=== PATIENT | female | born 1990 | race Asian ===

== ENCOUNTER 2016-12-16 16:57 | Inpatient (IN) | payer OTHER ==
[~2016-12-16] VITALS: Ht 167.6 cm; Wt 77.1 kg
[2016-12-16] MEDS: NACL 0.9% 1,000 ML IV SCH (01:00)
--- NOTE | 2016-12-16 16:57 | NUR ---
Patient was BIBA at this time.
[2016-12-16 17:05] VITALS: BP 119/73
--- NOTE | 2016-12-16 17:05 | NUR ---
Patient taken to bed 08 via gurney per EMS.
--- NOTE | 2016-12-16 17:15 | NUR ---
PATIENT BIB EMS TO ED PER PATIENT,MINIMAL CHEST DISCOMFORT PRIOR TO SYNCOPAL EPISODE/FALL. PATIENT COMPLAINED OF NECK AND BACK PAIN AFTER THE FALL.DENIES HX: AND MEDS.BS 136 FIELD DENIES N/V/D; SKIN IS PINK/WARM/DRY; AAOX4 WITH EVEN AND STEADY GAIT; LUNGS CLEAR BL; HR EVEN AND REGULAR; PT DENIES ANY FEVER, CP, SOB, OR COUGH AT THIS TIME; PATIENT STATES PAIN OF 9/10 AT THIS TIME; VSS; PATIENT POSITIONED FOR COMFORT; HOB ELEVATED; BEDRAILS UP X2; BED DOWN. ER MD MADE AWARE OF PT STATUS.
--- NOTE | 2016-12-16 17:40 | NUR ---
XRAY at bedside.
--- NOTE | 2016-12-16 17:45 | NUR ---
Dr. Sandhu evaluating patient at bedside.
[2016-12-16] MEDS ORDERED: MORPHINE SULFATE 4 MG/ML SYR IVP ONE ×3 (17:50→21:35)
[2016-12-16] MEDS ORDERED: NACL 0.9% 1,000 ML IV ONE ×2 (17:50→19:10)
[2016-12-16 18:04] LABS: BASOPHILS # (AUTO) 0.1 K/uL (0.00-0.22); BASOPHILS % (AUTO) 0.5 % (0.0-2.0); EOSINOPHILS # (AUTO) 0.2 K/uL (0-0.4); HEMATOCRIT 32.9 % (36-48); HEMOGLOBIN 10.7 g/dL (12.0-16.0); LYMPHOCYTES # (AUTO) 0.9 K/uL (2.5-16.5); LYMPHOCYTES % (AUTO) 5.1 % (20.5-51.1); MEAN CORPUSCULAR HEMOGLOBIN 28 pg (27-31); MEAN CORPUSCULAR HGB CONC 33 g/dL (33-37); MEAN CORPUSCULAR VOLUME 86 fL (80-94); MONOCYTES # (AUTO) 0.3 K/uL (0.8-1.0); MONOCYTES % (AUTO) 1.6 % (1.7-9.3); NEUTROPHILS # (AUTO) 15.6 K/uL (1.8-7.7); NEUTROPHILS % (AUTO) 91.8 % (42.2-75.2); PLATELET COUNT (AUTO) 275 K/uL (140-450); RED BLOOD CELL COUNT(AUTO) 3.82 MIL/uL (4.20-5.40); RED CELL DISTRIBUTION WIDTH 12.5 % (11.6-13.7); WHITE BLOOD COUNT (AUTO) 17.1 K/uL (4.8-10.8)
[2016-12-16] MEDS ORDERED: LORazepam 2 MG/ML VIAL IVP ONE (18:35)
[2016-12-16 18:36] LABS: ANION GAP 13.8 (8-16); CARBON DIOXIDE 21.6 mmol/L (21-32); CREATININE 0.9 mg/dL (0.6-1.3); POTASSIUM 4.4 mmol/L (3.5-5.1); TOTAL BILIRUBIN 0.3 mg/dL (0.0-1.0)
[2016-12-16 20:27] LABS: APPEARANCE,URINE SL CLOUDY (CLEAR); BILIRUBIN,URINE NEGATIVE (NEGATIVE); BLOOD, URINE 3+ (NEGATIVE); COLOR,URINE YELLOW (YELLOW); LEUKOCYTE ESTERASE ,URINE NEGATIVE (NEGATIVE); NITRITE, URINE NEGATIVE (NEGATIVE); UGLUCOSE NEGATIVE (NEGATIVE)
[2016-12-16 20:40] LABS: CALCIUM OXALATE CRYSTALS,UR 0-10 /HPF (None Seen); RBC,URINE 11-20 (MOD) /HPF (0-5); WBC,URINE 0-5 (RARE) /HPF (0-5)
[2016-12-16] MEDS ORDERED: cefTRIAXone 1,000 MG VIAL ONE (20:55)
--- NOTE | 2016-12-16 20:59 | NUR ---
PT LEFT TO CT VIA WC ACCOMPANIED BY SOFTWARE SUPPORT TECHNICIAN
[2016-12-16] MEDS ORDERED: ONDANSETRON 4 MG/2 ML VIAL IVP PRN (22:45)
[2016-12-16] MEDS ORDERED: LORazepam 2 MG/ML VIAL IVP PRN (22:45)
[2016-12-16] MEDS ORDERED: ACETAMINOPHEN 325 MG TAB PO PRN (22:45)
[2016-12-16] MEDS ORDERED: HYDROcodone/APAP 5/325 MG 1 TAB TAB PO PRN (22:45)
--- NOTE | 2016-12-16 23:58 | NUR ---
Patient will be admitted to care of DR CARDENAS. Admited to MS . Will go to room MS 104B. Belongings list completed. Report to DINO HOWARD .
[2016-12-17 00:25] VITALS: BP 97/64
--- NOTE | 2016-12-17 00:25 | NUR ---
PATIENT ADMITTED TO THE UNIT FROM ER. PATIENT ALERT, AWAKE, AND ORIENTED. NO SIGNS AND SYMPTOMS OF DISTRESS NOTED. IV SITE NOTED ON LEFT AC AND RIGHT HAND. ERYTHEMA NOTED ON RIGHT KNEE. BED IN LOWEST POSITION. SIDE RAILS UP AND CALL LIGHT WITHIN REACH.
[2016-12-17] MEDS: MORPHINE SULFATE 2 MG/ML SYR IVP PRN ×4 (03:06→21:35)
[2016-12-17] MEDS ORDERED: PIPERACILLIN/TAZOBACTAM 3.375 GM VIAL IV ONE (04:12)
[2016-12-17] MEDS ORDERED: PIPERACILLIN/TAZOBACTAM 3.375 GM in DEXTROSE 5% 50 ML IV SCH (05:00)
[2016-12-17 06:44] LABS: BASOPHILS # (AUTO) 0.1 K/uL (0.00-0.22); BASOPHILS % (AUTO) 0.5 % (0.0-2.0); EOSINOPHILS # (AUTO) 0.1 K/uL (0-0.4); EOSINOPHILS % (AUTO) 0.4 % (0.0-4.0); HEMATOCRIT 25.9 % (36-48); HEMOGLOBIN 8.6 g/dL (12.0-16.0); LYMPHOCYTES % (AUTO) 13.4 % (20.5-51.1); MEAN CORPUSCULAR HEMOGLOBIN 29 pg (27-31); MEAN CORPUSCULAR HGB CONC 33 g/dL (33-37); MEAN CORPUSCULAR VOLUME 87 fL (80-94); MONOCYTES # (AUTO) 0.9 K/uL (0.8-1.0); MONOCYTES % (AUTO) 6.2 % (1.7-9.3); NEUTROPHILS # (AUTO) 12.1 K/uL (1.8-7.7); NEUTROPHILS % (AUTO) 79.5 % (42.2-75.2); PLATELET COUNT (AUTO) 186 K/uL (140-450); RED BLOOD CELL COUNT(AUTO) 2.98 MIL/uL (4.20-5.40); RED CELL DISTRIBUTION WIDTH 12.8 % (11.6-13.7); WHITE BLOOD COUNT (AUTO) 15.2 K/uL (4.8-10.8)
--- NOTE | 2016-12-17 07:10 | NUR ---
RECEIVED REPORT FROM NIGHT NURSE, PT IS AAOX4, ON ROOM AIR, IV TO RIGHT HAND 20G INFUSING WELL, RIGHT AC 20G SALIME LOCK PATENT AND INTACT, RIGHT KNEE SCRAPE, INITIAL ASSESSMENT COMPLETED, REVIEWED PLAN OF CARE WIT PT, PT VERBALIZED UNDERSTANDING, ALL SAFETY PRECAUTIONS MET. CALL LIGHT WITHIN REACH, WILL CONTINUE TO MONITOR.
--- NOTE | 2016-12-17 07:21 | NUR ---
PATIENT REPORT GIVEN TO MORNING NURSE. PATIENT IS IN STABLE CONDITION
[2016-12-17 07:46] LABS: ANION GAP 10.9 (8-16); CARBON DIOXIDE 22.8 mmol/L (21-32); CREATININE 0.6 mg/dL (0.6-1.3); POTASSIUM 3.7 mmol/L (3.5-5.1)
[2016-12-17 08:00] VITALS: BP 123/78
--- NOTE | 2016-12-17 09:21 | NUR ---
PT C/O ABD PAIN 10/30, MEDICATED PER MD ORDERS. WILL CONTINUE TO MONITOR.
[2016-12-17 09:51] LABS: PROTHROMBIN TIME 9.9 secs (10.8-13.4)
--- NOTE | 2016-12-17 09:55 | NUR ---
FAXED INITIAL REVIEW TO [facility] [phone] [place] [phone]
[2016-12-17 09:59] LABS: HEMATOCRIT 26.6 % (36-48); HEMOGLOBIN 8.8 g/dL (12.0-16.0); MEAN CORPUSCULAR HEMOGLOBIN 29 pg (27-31); MEAN CORPUSCULAR HGB CONC 33 g/dL (33-37); MEAN CORPUSCULAR VOLUME 87 fL (80-94); PLATELET COUNT (AUTO) 191 K/uL (140-450); RED BLOOD CELL COUNT(AUTO) 3.06 MIL/uL (4.20-5.40); RED CELL DISTRIBUTION WIDTH 13.1 % (11.6-13.7); WHITE BLOOD COUNT (AUTO) 14.8 K/uL (4.8-10.8)
--- NOTE | 2016-12-17 10:00 | NUR ---
PATIENT HAS BEEN SCREENED AND CATEGORIZED MODERATE NUTRITION RISK. PATIENT WILL BE SEEN WITHIN 3-5 DAYS OF ADMISSION. 12/19/16-12/21/[address]
[2016-12-17 10:19] LABS: ALBUMIN 2.7 g/dL (3.4-5.0); ANION GAP 10.8 (8-16); CARBON DIOXIDE 22.8 mmol/L (21-32); CREATININE 0.6 mg/dL (0.6-1.3); POTASSIUM 3.6 mmol/L (3.5-5.1); TOTAL BILIRUBIN 0.1 mg/dL (0.0-1.0)
[2016-12-17] MEDS: NACL 0.9% 1,000 ML IV SCH ×3 (10:25→23:45)
[2016-12-17 10:57] LABS: LYMPHOCYTES % (MANUAL) 17 % (20-46); MONOCYTES % (MANUAL) 6 % (5-12)
--- NOTE | 2016-12-17 12:15 | NUR ---
PRE BLOOD TRANSFUSION VS: 98.7 TEMP, BP 122/77, HR 86, PULSE OX 98%
[2016-12-17 12:18] LABS: HEMATOCRIT 26.1 % (36-48); HEMOGLOBIN 8.6 g/dL (12.0-16.0)
--- NOTE | 2016-12-17 12:20 | NUR ---
FIRST UNIT OF BLOOD STARTED, NO S/S OF REACTION NOTED. WILL CONTINUE TO MONITOR.
--- NOTE | 2016-12-17 14:18 | NUR ---
PT CURRENTLY ON LAPTOP, NO S/S OF DISTRESS NOTED, PRBC CURRENTLY INFUSING, NO S/S REACTION NOTED, FAMILY MEMBER AT BEDSIDE, ALL NEEDS MET. WILL CONTINUE TO MONITOR.
--- NOTE | 2016-12-17 15:43 | NUR ---
FIRST UNIT OF BLOOD COMPLETED, VS:TEMP 98.3, HE 84, BP 101/64, MD NOTIFIED OF BLOOD PRESSURE. WILL CONTINUE TO MONITOR.
[2016-12-17] MEDS: PIPER/TAZO 3.375GM/D5W PREMIX 50 ML IV SCH ×2 (15:56→21:29)
[2016-12-17 16:00] VITALS: BP 111/71
--- NOTE | 2016-12-17 17:46 | NUR ---
PT C/O ABD 10/30, MEDICATED PER MD ORDERS BP 128/75/ HR 108, PULSE OX 97%. WILL CONTINUE TO MONITOR.
--- NOTE | 2016-12-17 18:30 | NUR ---
SECOND UNIT OF PRBC STARTED, NO S/S OF REACTION NOTED. WILL CONTINUE TO MONITOR.
--- NOTE | 2016-12-17 19:25 | NUR ---
ENDORSED PLAN OF CARE TO NIGHT NURSE, PT IN STABLE CONDITION
--- NOTE | 2016-12-17 19:30 | NUR ---
RECEIVED PT IN STABLE CONDITION FROM AM NURSE. AWAKE,ALERT AND ORIENTED X4, ON JEWELL MONITOR. WITH NO C/O ANY DISCOMFORT NOR PAIN NOTED. WITH BLOOD TRANSFUSION 2ND UNIT STILL INFUSING. PLAN OF CARE DISCUSSED . VERBALIZED UNDERSTANDING. CALL LIGHT PLACED WITHIN EASY REACH. WILL CONTINUE TO MONITOR.
[2016-12-17 19:45] VITALS: BP 111/66
[2016-12-17] MEDS ORDERED: METHOTREXATE 100 MG/4 ML VIAL IM SCH (21:00)
--- NOTE | 2016-12-17 21:15 | NUR ---
2ND UNIT PRBC TRANSFUSION DONE. NO REACTION NOTED. VITAL SIGNS STABLE. WILL RECHECK H AND H @8615.
--- NOTE | 2016-12-17 22:30 | NUR ---
CALLED PHARMACY REGARDING THE PENDING METHOTREXATE IM . PHARMACIST CAROLYN SAID BECAUSE IT HAS REACTION WITH THE ZOSYN. WAITING FOR MD TO CALL.
--- NOTE | 2016-12-17 22:52 | NUR ---
PAGED DR. Sebastian KAUR REGARDING THE METHOTREXATE AND HE SAID GIVE IT ,AND HAVE TO DC ZOSYN. WILL CALL DR. RAMOS FOR DR. CARDENAS WHO ORDERED THE ZOSYN.
--- NOTE | 2016-12-17 23:08 | NUR ---
ABLE TO TALKED TO DR. RAMOS . MADE AWARE OF THE REACTION OF THE ZOSYN TO METHOTREXATE. HE SAID TO HOLD THE ZOSYN FOR NOW.
--- NOTE | 2016-12-17 23:12 | NUR ---
CALLED PHARMACY AND TALKED TO CAROLYN, SHE SAID CAN GIVE THE METHOTREXATE IN AM .
--- NOTE | 2016-12-17 23:57 | NUR ---
LATEST HGB 10.0 AND HCT 30.6 AFTER THE 2 UNITS PRBC . PT ON STABLE CONDITION. ANOTHER H AND H IN AM.
[2016-12-18 00:01] LABS: HEMATOCRIT 30.6 % (36-48)
[2016-12-18 00:30] VITALS: BP 104/64
--- NOTE | 2016-12-18 02:00 | NUR ---
SLEEPING AT THIS TIME. NO S/S OF ANY DISCOMFORT NOR PAIN NOTED.
[2016-12-18 03:03] VITALS: BP 111/71
[2016-12-18] MEDS: MORPHINE SULFATE 2 MG/ML SYR IVP PRN ×4 (03:05→17:23)
[2016-12-18] MEDS: NACL 0.9% 1,000 ML IV SCH ×4 (04:35→19:20)
--- NOTE | 2016-12-18 05:55 | NUR ---
METHOTREXATE NOT LOADED IN THE [facility] SO ASKED LEE FISHER CLEANING STAFF SUPERVISOR TO OVERRIDE. HE CALLED THAT THE MEDICINE IS NOT AVAILABLE. WILL HAVE TO ENDORSE TO AM NURSE FOR PHARMACY TO PROVIDE THIS AM.
[2016-12-18] MEDS ORDERED: METHOTREXATE 100 MG/4 ML VIAL IM SCH ×2 (06:00→12:00)
[2016-12-18 06:03] LABS: BASOPHILS # (AUTO) 0.7 K/uL (0.00-0.22); BASOPHILS % (AUTO) 4.8 % (0.0-2.0); EOSINOPHILS # (AUTO) 0.1 K/uL (0-0.4); EOSINOPHILS % (AUTO) 0.7 % (0.0-4.0); HEMATOCRIT 31.2 % (36-48); HEMOGLOBIN 10.5 g/dL (12.0-16.0); LYMPHOCYTES # (AUTO) 2.2 K/uL (2.5-16.5); LYMPHOCYTES % (AUTO) 16.2 % (20.5-51.1); MEAN CORPUSCULAR HEMOGLOBIN 29 pg (27-31); MEAN CORPUSCULAR HGB CONC 34 g/dL (33-37); MEAN CORPUSCULAR VOLUME 87 fL (80-94); MONOCYTES # (AUTO) 0.9 K/uL (0.8-1.0); MONOCYTES % (AUTO) 6.6 % (1.7-9.3); NEUTROPHILS # (AUTO) 9.7 K/uL (1.8-7.7); NEUTROPHILS % (AUTO) 71.7 % (42.2-75.2); PLATELET COUNT (AUTO) 180 K/uL (140-450); RED BLOOD CELL COUNT(AUTO) 3.59 MIL/uL (4.20-5.40)
[2016-12-18 07:19] LABS: WHITE BLOOD COUNT (AUTO) 13.6 K/uL (4.8-10.8)
--- NOTE | 2016-12-18 07:20 | NUR ---
ENDORSED PT IN STABLE CONDITION TO AM NURSE FOR CONTINUITY OF CARE.
--- NOTE | 2016-12-18 07:20 | NUR ---
RECEIVED REPORT FROM NIGHT NURSE, PT IS AAOX4, ON ROOM AIR, RIGHT AC 20G INFUSING WELL, RIGHT KNEE SCRAPE, INITIAL ASSESSMENT COMPLETED, REVIEWED PLAN OF CARE WIT PT, PT VERBALIZED UNDERSTANDING, ALL SAFETY PRECAUTIONS MET. CALL LIGHT WITHIN REACH, WILL CONTINUE TO MONITOR.
[2016-12-18 07:55] VITALS: BP 106/69
[2016-12-18] MEDS ORDERED: MAGNESIUM HYDROXIDE 2400 MG/30 ML UDC PO PRN (09:55)
--- NOTE | 2016-12-18 11:21 | NUR ---
DUE MEDICATION GIVEN, PT TOLERATED WELL. ALL NEEDS MET. WILL CONTINUE TO MONITOR.
[2016-12-18 12:15] LABS: HEMATOCRIT 33.8 % (36-48)
--- NOTE | 2016-12-18 13:45 | NUR ---
PT CURRENTLY SLEEPING, AWAKENS TO NAME. NO S/S OF DISTRESS NOTED. CALL LIGHT WITHIN REACH. WILL CONTINUE TO MONITOR.
--- NOTE | 2016-12-18 13:52 | NUR ---
CM NOTE CONCURRENT REVIEW FAXED [facility] / FAX# [phone], ATTN: [facility] #[phone]
[2016-12-18 16:00] VITALS: BP 112/70
--- NOTE | 2016-12-18 16:25 | NUR ---
PT CURRENTLY VISITING WITH FAMILY, ALL NEEDS MET. WILL CONTINUE TO MONITOE.
--- NOTE | 2016-12-18 18:00 | NUR ---
CHECKED IN ON PT, PT CURRENTLY VISITING WITH FAMILY, NO S/S OF DISTRESS NOTED. ALL NEEDS MET. WILL CONTINUE TO MONITOR.
[2016-12-18 18:28] LABS: HEMATOCRIT 33.7 % (36-48); HEMOGLOBIN 11.2 g/dL (12.0-16.0)
--- NOTE | 2016-12-18 19:19 | NUR ---
ENDORSED PLAN OF CARE TO NIGHT NURSE, PT IN STABLE CONDITION, FAMILY CURRENTLY AT BEDSIDE
--- NOTE | 2016-12-18 19:20 | NUR ---
RECEIVED REPORT FROM AM NURSE. PT IS AOX4, ABLE TO MAKE NEEDS KNOWN WITH FAMILY AT BEDSIDE. WITH RESPIRATIONS CLEAR AND UNLABORED. WITH COMPLAINTS OF ABDOMINAL PAIN, AM NURSE ADMINISTERED NORCO. WITH AN IV, INTACT AND PATENT. INITIAL ASSESSMENT DONE. REORIENTED PT TO THE UNIT, VERBALIZED UNDERSTANDING. WILL CONTINUE TO MONITOR. ALL NEEDS ATTENDED. CALL LIGHT WITHIN REACH. SAFETY CHECKS IN PLACE.
[2016-12-18] MEDS: HYDROcodone/APAP 5/325 MG 1 TAB TAB PO PRN (19:23)
[2016-12-18] MEDS: DOCUSATE SODIUM 100 MG GELCAP PO SCH (21:08)
--- NOTE | 2016-12-18 21:08 | NUR ---
DUE MEDS GIVEN, WELL TOLERATED BY PATIENT. WILL CONTINUE TO MONITOR FOR ANY CHANGES.
--- NOTE | 2016-12-18 21:29 | NUR ---
CALLED DR. WAGNER RAMOS BECAUSE PATIENT WANTS SOMETHING FOR SLEEP. HE ORDERED AMBIEN 10 MG PRN. NOTED AND CARRIED OUT.
[2016-12-18] MEDS ORDERED: ZOLPIDEM 10 MG TAB PO PRN (21:30)
[2016-12-19] VITALS: BP 104/70
--- NOTE | 2016-12-19 | NUR ---
VITAL SIGNS STABLE. NO S/S OF DISTRESS. NO COMPLAINTS OF PAIN. WILL CONTINUE TO MONITOR FOR ANY CHANGES.
--- NOTE | 2016-12-19 00:18 | NUR ---
LAB CALLED TO ASK ABOUT THE PATIENT'S HEMOGLOBIN AND HEMATOCRIT, CALLED DR. RAMOS TO VERIFY AND SAID TO CONTINUE WITH THE HEMOGLOBIN AND HEMATOCRIT BLOOD DRAW.
[2016-12-19 00:26] LABS: HEMATOCRIT 31.9 % (36-48); HEMOGLOBIN 10.1 g/dL (12.0-16.0)
--- NOTE | 2016-12-19 02:22 | NUR ---
MADE ROUNDS, PATIENT ASLEEP. NO S/S OF DISTRESS. WILL CONTINUE TO MONITOR FOR ANY CHANGES.
[2016-12-19] MEDS: NACL 0.9% 1,000 ML IV SCH ×4 (02:29→22:55)
--- NOTE | 2016-12-19 06:29 | NUR ---
IV TO THE LEFT FOREARM SEEMED SWOLLEN. PUT A PILLOW UNDER HER ARM TO ELEVATE THE EXTREMITY. INSERTED ANOTHER IV TO THE RIGHT HAND 22 G.
[2016-12-19 06:44] LABS: BASOPHILS # (AUTO) 0.1 K/uL (0.00-0.22); BASOPHILS % (AUTO) 0.6 % (0.0-2.0); EOSINOPHILS # (AUTO) 0.1 K/uL (0-0.4); EOSINOPHILS % (AUTO) 0.6 % (0.0-4.0); HEMATOCRIT 32.2 % (36-48); HEMOGLOBIN 10.8 g/dL (12.0-16.0); LYMPHOCYTES # (AUTO) 1.2 K/uL (2.5-16.5); LYMPHOCYTES % (AUTO) 10.2 % (20.5-51.1); MEAN CORPUSCULAR HEMOGLOBIN 29 pg (27-31); MEAN CORPUSCULAR HGB CONC 34 g/dL (33-37); MEAN CORPUSCULAR VOLUME 86 fL (80-94); MONOCYTES # (AUTO) 0.7 K/uL (0.8-1.0); MONOCYTES % (AUTO) 5.9 % (1.7-9.3); NEUTROPHILS # (AUTO) 9.2 K/uL (1.8-7.7); NEUTROPHILS % (AUTO) 82.7 % (42.2-75.2); PLATELET COUNT (AUTO) 177 K/uL (140-450); RED BLOOD CELL COUNT(AUTO) 3.75 MIL/uL (4.20-5.40); RED CELL DISTRIBUTION WIDTH 12.9 % (11.6-13.7); WHITE BLOOD COUNT (AUTO) 11.3 K/uL (4.8-10.8)
[2016-12-19 07:06] LABS: CREATININE 0.6 mg/dL (0.6-1.3); POTASSIUM 3.6 mmol/L (3.5-5.1)
--- NOTE | 2016-12-19 07:28 | NUR ---
ENDORSED TO AM SHIFT NURSE FOR CONTINUITY OF CARE, IN STABLE CONDITION.
--- NOTE | 2016-12-19 07:28 | NUR ---
RECEIVED PT IN BED. ASLEEP. AROUSABLE TO VOICE. ALERT ORIENTEDX4. NOS OB NOTED DENIES ANY PAIN OR DISCOMFORT AT THIS TIME. PT AMBULATORY. SAFETY PRECAUTION IN PLACE. CALL LIGHT WITHIN REACH.
[2016-12-19 07:38] LABS: ANION GAP 12.8 (8-16); CARBON DIOXIDE 21.8 mmol/L (21-32)
[2016-12-19 07:54] VITALS: BP 106/66
[2016-12-19] MEDS: MORPHINE SULFATE 2 MG/ML SYR IVP PRN (09:41)
[2016-12-19] MEDS: DOCUSATE SODIUM 100 MG GELCAP PO SCH ×2 (09:41→20:21)
--- NOTE | 2016-12-19 10:41 | NUR ---
CLARIFIED DIET WITH DR. CARDENAS, WITH VERBAL ORDER READ BACK RECEIVED. ORDER MADE AND CARRIED OUT.
[2016-12-19 12:15] LABS: HEMATOCRIT 34.2 % (36-48); HEMOGLOBIN 11.1 g/dL (12.0-16.0)
[2016-12-19] MEDS: HYDROcodone/APAP 5/325 MG 1 TAB TAB PO PRN (13:37)
--- NOTE | 2016-12-19 14:19 | NUR ---
FAXED CONCURRENT REVIEW TO [facility] [phone] PHONE [place] [phone]
--- NOTE | 2016-12-19 14:40 | NUR ---
CALLED DR. CARDENAS MADE AWARE OF ULTRASOUND OF PELVIC TRANS VAGINAL. WILL CALL DR. REYEZ TO MADE AWARE OF RESULT. CHARGE NURSE ABLE TO SPEAK WITH SURGEON DR. PANIAGUA, DR. PANIAGUA TO COME LATER TO SEE PT.
--- NOTE | 2016-12-19 14:48 | NUR ---
CALLED DR. REYEZ AND MADE AWARE OF RESULT OF THE US PELVIC TRANSVAGINAL.
[2016-12-19 16:00] VITALS: BP 98/66
[2016-12-19 18:39] LABS: HEMOGLOBIN 11.3 g/dL (12.0-16.0)
--- NOTE | 2016-12-19 19:02 | NUR ---
RECEIVED REPORT FROM AM NURSE. PT IS AOX4, ABLE TO MAKE NEEDS KNOWN. WITH RESPIRATIONS CLEAR AND UNLABORED. NO COMPLAINTS OF PAIN AT THIS TIME. WITH AN IV TO THE RIGHT HAND, INTACT AND PATENT. SKIN INTACT. RE-ORIENTED PT TO THE UNIT, VERBALIZED UNDERSTANDING. WILL CONTINUE TO MONITOR. ALL NEEDS ATTENDED. CALL LIGHT WITHIN REACH. SAFETY CHECKS IN PLACE.
--- NOTE | 2016-12-19 19:02 | NUR ---
PT KEPT, CLEAN, DRY AND COMFORTABLE, NEEDS ATTENDED. WILL ENDORSE TO NEXT SHIFT, PT ON STABLE CONDITION, FOR CONTINUITY OF CARE. AWAITING CONSULT DR. PANIAGUA.
--- NOTE | 2016-12-19 19:35 | NUR ---
DR. PANIAGUA AT BEDSIDE DISCUSSING CASE TO THE PATIENT.
[2016-12-19] MEDS: HYDROmorphone 1 MG/ML AMP IVP PRN (20:21)
--- NOTE | 2016-12-19 20:21 | NUR ---
DUE MEDS GIVEN, WELL TOLERATED BY PATIENT. PT COMPLAINED OF PAIN, ASKED FOR DILAUDID. WILL CONTINUE TO MONITOR FOR ANY CHANGES.
[2016-12-20 00:25] LABS: HEMATOCRIT 34.4 % (36-48); HEMOGLOBIN 10.6 g/dL (12.0-16.0)
[2016-12-20 00:30] VITALS: BP 113/72
--- NOTE | 2016-12-20 00:30 | NUR ---
CHECKED VITALS AT MIDNIGHT, PATIENT WAS RUNNING A LOW GRADE FEVER OF 100 F. GAVE COOLING MEASURES OF AN ICE PACK AND A COLD TOWEL AND TOLD THE PATIENT TO REMOVE SOME BEDSHEET COVERS. RECHECKED AGAIN AT 0030 AND TEMPERATURE WENT DOWN TO 98.7 F.
[2016-12-20] MEDS: HYDROmorphone 1 MG/ML AMP IVP PRN ×2 (00:48→08:08)
--- NOTE | 2016-12-20 02:20 | NUR ---
PATIENT ASLEEP. NO S/S OF DISTRESS. WILL CONTINUE TO MONITOR PATIENT FOR ANY CHANGES.
[2016-12-20] MEDS: NACL 0.9% 1,000 ML IV SCH ×2 (05:19→11:45)
--- NOTE | 2016-12-20 07:02 | NUR ---
ENDORSED TO AM SHIFT NURSE FOR CONTINUITY OF CARE IN STABLE CONDITION.
--- NOTE | 2016-12-20 07:03 | NUR ---
RECEIVED REPORT, ASSUMED CARE. PT ASLEEP, EASILY AROUSABLE. RESPIRATION EVEN AND UNLABORED,NO SOB, NO S/S OF RESPIRATORY DISTRESS. NO FACIAL GRIMACING INDICATING PAIN.IVF NS INFUSING WELL AT 150ML/HR. RT HAND IV ACCESS GAUGE 22 WITH NO S/S OF INFILTRATION. WILL CONTINUE TO MONITOR.
[2016-12-20 08:00] VITALS: BP 112/73
[2016-12-20] MEDS: DOCUSATE SODIUM 100 MG GELCAP PO SCH (08:08)
--- NOTE | 2016-12-20 08:08 | NUR ---
SCHEDULED AM MEDS ADMINISTERED ORDERED. WILL CONTINUE TO MONITOR.
[2016-12-20] MEDS ORDERED: oxyCODONE/APAP 5/325 MG 1 TAB TAB PO PRN ×2 (10:05)
[2016-12-20] MEDS ORDERED: DOCU-299 PO (10:08)
[2016-12-20] MEDS ORDERED: ACET-5629 PO (10:08)
--- NOTE | 2016-12-20 10:10 | NUR ---
DR. CARDENAS CLEARED PT TO DISCHARGE TO HOME. PT MADE AWARE, SHE STATES HER FIANCE WILL PICK HER UP AT 1400.
--- NOTE | 2016-12-20 14:10 | NUR ---
DISCHARGED PT HOME TODAY, PICKED UP BY [facility]. RESPIRATION EVEN AND UNLABORED, NO S/S OF RESPIRATORY DISTRESS/ PT C/O ABDOMINAL PAIN 08/30. PERCOCET 5/325MG ADMINISTERED TO RELIEVE PAIN. IVF STOPPED AND DISCONTINUED. IV REMOVED CATHETER TIP INTACT, BLEEDING CONTROLLED.DISCHARGE EDUCATION PROVIDED. INSTRUCTED TO CALL F/U APPT WITH DR. KAUR. PT VERBALIZED UNDERSTANDING.ALL BELONGINGS SIGNED AND GIVEN TO THE PATIENT. PT ESCORTED BY THE STAFF TO THE LOBBY. PT IN STABLE CONDITION.
== END 2016-12-20 14:10 | disposition home or self-care (01) | DRG 566 ==
LOC: MED 16:57 → MTU 22:49
PROVIDERS: ADMIT Hospitalist; ATTEND Hospitalist
PROC: 30233N1 Transfusion of Nonautologous Red Blood Cells into Peripheral Vein, Percutaneous Approach (ICD-10-PCS; principal; 2016-12-17)
DX: O00.90 Unspecified ectopic pregnancy without intrauterine pregnancy (principal); K66.1 Hemoperitoneum; K65.9 Peritonitis, unspecified; K66.8 Other specified disorders of peritoneum; E44.0 Moderate protein-calorie malnutrition; N83.202 Unspecified ovarian cyst, left side; N83.201 Unspecified ovarian cyst, right side; K59.00 Constipation, unspecified; D72.829 Elevated white blood cell count, unspecified; Z68.27 Body mass index [BMI] 27.0-27.9, adult
CPT/HCPCS: 36415; 71010; 76817; 76830; 80048; 80053; 81001; 81025; 82948; 83690; 84484; 84702; 85018; 85025; 85379; 85610; 85730; 86886; 86900; 86901; 86920; 87081; 87086; 93005; 96365; 96375; 96376; 99291; J0696; J1170; J2060; J2270; J2543; J7030; J7060; J9260; P9016; Q0092

== ENCOUNTER 2019-05-08 20:50 | Emergency (ER) | payer MEDICAID, OTHER ==
[~2019-05-08] VITALS: Ht 167.6 cm; Wt 82.1 kg
[~2019-05-08 20:50] MED LIST: ACET-5629 PO; DOCU-299 PO
[2019-05-08 21:09] VITALS: BP 136/87
--- NOTE | 2019-05-08 21:16 | NUR ---
PT AMBULATED TO BEDB #5
--- NOTE | 2019-05-08 21:30 | NUR ---
PT C/O VAGINAL BLEEDING X1 DAY. 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 PT STATES SHE HAD BLOOD WORK X2 DAYS AGO. PT STATES HER BETA HCG LEVELS WERE LOWER THAN THE OBGTN DOCTOR WANTED. PT STATES SHE HAD 10 MINNUTES OF CONSTANT FLOW OF BLOOD LAST NIGHT. DENIES WEAKNESS OR DIZZINESS. PT NOW HAVING SPOTTING. PT PARA 4, 3. NO COMPLICATION WITH PREVIOUS PREGANCY. TAKING VITAMINS AND STOOL SOFTNERS. SKIN IS PINK/WARM/DRY; AAOX4 WITH EVEN AND STEADY GAIT; LUNGS CLEAR BL; HR EVEN AND REGULAR; PT DENIES ANY FEVER, CP, SOB, OR COUGH AT THIS TIME; PATIENT STATES PAIN OF 0/10 AT THIS TIME; VSS; PATIENT POSITIONED FOR COMFORT; HOB ELEVATED; BEDRAILS UP X1; BED DOWN.
[2019-05-08] MEDS ORDERED: ACETAMINOPHEN EXTRA STRENGTH 500 MG TAB PO ONE (22:45)
--- NOTE | 2019-05-08 22:48 | NUR ---
US AT BEDSIDE
[2019-05-08 23:30] LABS: BASOPHILS # (AUTO) 0.1 K/uL (0.00-0.22); BASOPHILS % (AUTO) 0.7 % (0.0-2.0); EOSINOPHILS # (AUTO) 0.3 K/uL (0-0.4); EOSINOPHILS % (AUTO) 3.1 % (0.0-4.0); HEMATOCRIT 39.3 % (36-48); HEMOGLOBIN 13.3 g/dL (12.0-16.0); LYMPHOCYTES % (AUTO) 17.9 % (20.5-51.1); MEAN CORPUSCULAR HEMOGLOBIN 29 pg (27-31); MEAN CORPUSCULAR HGB CONC 34 g/dL (33-37); MEAN CORPUSCULAR VOLUME 85.5 fL (80-94); MONOCYTES # (AUTO) 0.6 K/uL (0.8-1.0); MONOCYTES % (AUTO) 5.6 % (1.7-9.3); NEUTROPHILS % (AUTO) 72.7 % (42.2-75.2); PLATELET COUNT (AUTO) 309 K/uL (140-450); RED BLOOD CELL COUNT(AUTO) 4.59 MIL/uL (4.20-5.40); RED CELL DISTRIBUTION WIDTH 14.2 % (11.6-13.7); WHITE BLOOD COUNT (AUTO) 11.1 K/uL (4.8-10.8)
[2019-05-08 23:46] LABS: ALBUMIN 3.2 g/dL (3.4-5.0); ANION GAP 13.2 (8-16); CARBON DIOXIDE 23.4 mmol/L (21-32); CREATININE 0.6 mg/dL (0.6-1.3); POTASSIUM 3.6 mmol/L (3.5-5.1); TOTAL BILIRUBIN 0.2 mg/dL (0.0-1.0)
[2019-05-09 00:30] VITALS: BP 133/88
--- NOTE | 2019-05-09 00:30 | NUR ---
Patient discharged BY DR. WALL with v/s stable. Written and verbal after care instructions given and explained. Patient verbalized understanding. Ambulatory with steady gait. All questions addressed prior to discharge. Advised to follow up with PMD.
== END 2019-05-09 00:30 | disposition home or self-care (01) ==
LOC: MED 20:50
DX: O20.0 Threatened abortion (principal); Z3A.01 Less than 8 weeks gestation of pregnancy; Z79.899 Other long term (current) drug therapy
CPT/HCPCS: 36415; 76801; 80053; 81002; 81025; 84702; 85025; 86900; 86901; 99284; Q0092